=== PATIENT | female | born 1935 | race Caucasian/White ===

== ENCOUNTER 2019-10-06 22:28 | Emergency (ER) | payer OTHER ==
[~2019-10-06] VITALS: Ht 165.1 cm; Wt 59.1 kg
[2019-10-06] MEDS ORDERED: METO50TA7 PO (22:37)
[2019-10-06] MEDS ORDERED: OMEG12003 PO (22:39)
[2019-10-06] MEDS ORDERED: EZET10TA21 PO (22:39)
[2019-10-06] MEDS ORDERED: CO Q200C10 PO (22:39)
[2019-10-06] MEDS ORDERED: RAMI1CAP26 PO (22:39)
[2019-10-06] MEDS ORDERED: HYDR-643 PO (22:39)
[2019-10-06] MEDS ORDERED: ECOT81TA5 PO (22:39)
[2019-10-06] MEDS ORDERED: NIAC500T29 PO (22:39)
--- NOTE | 2019-10-07 01:13 | REPVR ---
PROCEDURE INFORMATION: Exam: US Duplex Right Upper Extremity Veins, Limited Exam date and time: 10/07/2019 12:41 AM Age: 84 years old Clinical indication: Edema, localized; Upper extremity, right; Additional info: Arm swelling TECHNIQUE: Imaging protocol: Real-time Duplex ultrasound of the Right Upper Extremity with 2-D uribe scale, color Doppler flow and spectral waveform analysis with image documentation. Limited exam focused on the right upper extremity veins. COMPARISON: No relevant prior studies available. FINDINGS: Right deep veins: Unremarkable. Internal jugular, subclavian, Axillary and brachial veins are patent throughout without thrombus. Normal Doppler waveforms. Normal compressibility and/or augmentation response. Visualized internal jugular and subclavian veins are patent. Right superficial veins: Unremarkable. Visualized cephalic and basilic veins are patent without thrombus. Soft tissues: 1.8 x 1.5 x 1.8 cm cystic area is seen in the muscles at the right clavicle may represent intramuscular hematoma, clinical correlation is recommended. IMPRESSION: No evidence of deep vein thrombosis. 1.8 x 1.5 x 1.8 cm cystic area is seen in the muscles at the right clavicle may represent intramuscular hematoma, clinical correlation is recommended. Electronically signed by: Thelma Dubois On 10/07/2019 01:13:02 AM
[2019-10-07 01:56] VITALS: BP 159/86
--- NOTE | 2019-10-07 08:06 | REP ---
Clinical: Trauma. Fall. Technique: AP and lateral views of the right forearm. 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 No acute fracture or dislocation. No subcutaneous emphysema or foreign body. Impression: No acute fracture or dislocation. Electronically Signed by Ander Avila MD 10/07/2019 07:57 A
--- NOTE | 2019-10-07 08:15 | REP ---
Clinical: Trauma. Fall. Technique: Two views of the right humerus. Findings: Age-related osteopenia and degenerative changes are appreciated. No acute fracture or dislocation. Impression: No acute fracture or dislocation. Electronically Signed by Ander Avila MD 10/07/2019 08:06 A
== END 2019-10-07 01:57 | disposition home or self-care (01) ==
LOC: M ED 22:28
DX: S50.11XA Contusion of right forearm, initial encounter (principal); W19.XXXA Unspecified fall, initial encounter; Y92.9 Unspecified place or not applicable; Y93.9 Activity, unspecified; Y99.9 Unspecified external cause status; I10 Essential (primary) hypertension; E78.5 Hyperlipidemia, unspecified; Z79.82 Long term (current) use of aspirin; Z79.899 Other long term (current) drug therapy